=== PATIENT | female | born 1955 | race Two or more races ===

== ENCOUNTER → 2017-01-31 | Day surgery (SDC) | payer OTHER ==
[~2017-01-31] MED LIST: ALLO100T PO; AMLO5TAB4 PO; ASPI-630 PO; IV RINGERS,LACTATED 1000ML 1,000 ML IV SCH; LIDOCAINE 1% PF 2 ML VIAL. ID PRN; LISI1TAB5 PO; MIDAZOLAM HCL/PF 2 MG/2 ML VIAL. IV PRN; PROPOFOL 20 ML IV ONE; fentaNYL PF VIAL 100 MCG/2 ML VIAL IV PRN
--- NOTE | 2017-01-31 08:35 | PDOC1 ---
HISTORY & PHYSICAL H&P Rose Pro [id number] 1955 01/03/2017 02:00 PM 03/06 [employer] [facility], [facility] OUR PATIENTS COME FIRST [address] [place] [address] Ph. [phone] Patient: Rose Pro Date of : 1955 Date: 01/03/2017 2:00 PM Visit Type: Consult This 61 year old female presents for Hemorrhoids and Screening colonoscopy. History of Present Illness: 1. Hemorrhoids Additional information: Has some issue with feeling some fullness in the rectum during cleaning after bowel movement.. 2. Screening colonoscopy No prior screening. Denies risk factors. Pertinent negatives include abdominal pain, change in bowel habits, change in stool caliber, constipation, decreased appetite, diarrhea, melena, nausea, rectal bleeding, vomiting, weight gain and weight loss. Additional information: No family history of colon cancer , No family history of Crohn's/colitis, No NSAID/ASA use and Patent has no prior colonoscopy. INTAKE COMMENTS: Intake Comments: Nurse Note: the pt is here today to schedule a screening colonoscopy, the pt states that she has never had one completed. The pt does have hemorrhoids but no complaint related. PROBLEM LIST: Problem Description Onset Date Benign essential hypertension 04/13/2009 Low compliance bladder 04/13/2009 Primary cardiomyopathy 04/13/2009 Obesity 04/13/2009 Kidney stone 04/13/2009 Diabetes mellitus without complication 04/13/2009 Acute idiopathic gout of left ankle 01/02/2015 Physical exam 08/18/2015 Morbid obesity with BMI of 45.0-49.9, adult 11/20/2015 PAST MEDICAL/SURGICAL HISTORY (Detailed) Disease/disorder Onset Date Management Date Comments Cholecystectomy Cardiomyopathy Diabetes Hypertension Kidney Stones Obesity Overactive Bladder GYNECOLOGIC HISTORY: Patient is postmenopausal. Menopause occurred in 2009. OBSTETRIC HISTORY: Not currently . Medications (Active): Started Medication Directions Instruction Stopped 10/28/2016 ALLOPURINOL 100 MG TABLET TAKE ONE TABLET BY MOUTH ONCE DAILY AT BEDTIME 12/30/2013 Aspir-81 81 mg tablet,delayed release take 1 tablet by oral route every day Fish Oil take 1 tablet by mouth daily 04/04/2016 LISINOPRIL-HCTZ 20-12.5 MG TAB TAKE ONE TABLET BY MOUTH ONE TIME DAILY 11/04/2014 multivitamin tablet take 1 tablet by oral route every day with food 12/07/2016 NORVASC 5 MG TABLET TAKE ONE TABLET BY MOUTH ONE TIME DAILY Allergies: Ingredient Reaction Medication Name Comment AMOXICILLIN AMPICILLIN REVIEW OF SYSTEMS System Neg/Pos Details Constitutional Negative Chills, fever, malaise, weight gain and weight loss. ENMT Negative Sore throat. Eyes Negative Double vision. Respiratory Negative Dyspnea and wheezing. Cardio Negative Chest pain and irregular heartbeat/palpitations. GI Positive See HPI. GI Negative Abdominal pain, change in bowel habits, change in stool caliber, constipation, decreased appetite, diarrhea, melena, nausea, see HPI, rectal bleeding and vomiting. Negative Dysuria and hematuria. Endocrine Negative Cold intolerance and heat intolerance. Psych Negative Anxiety. Integumentary Negative Hives and rash. MS Negative Joint pain. Gareth/Lymph Negative Easy bleeding and easy bruising. Allergic/Immuno Negative Animals at home and food allergies. Reproductive Positive The patient is post-menopausal (The year was 2009). VITAL SIGNS Time BP mm/Hg Pulse /min Resp /min Temp F Ht ft Ht in Ht cm Wt lb Wt kg BMI kg/ m2 BSA m2 O2 Sat% 1:52 PM 128/80 97 97.9 4.0 9.50 146.05 219.20 99.427 46.61 99 Time Measured by 1:52 PM Sangeeta Barkley PHYSICAL EXAM: Exam Findings Details Constitutional Normal Well developed. Eyes Normal Conjunctiva - Right: Normal, Left: Normal. Sclera - Right: Normal, Left: Normal. Nasopharynx Normal Lips/teeth/gums - Normal. Neck Exam Normal Inspection - Normal. Thyroid gland - Normal. Respiratory Normal Inspection - Normal. Auscultation - Normal. Cardiovascular Normal Regular rate and rhythm. No murmurs, gallops, or rubs. Vascular Normal Pulses - Carotids: Normal, Femoral: Normal, Dorsalis pedis: Normal. Abdomen Normal Inspection - Normal. Anterior palpation - No guarding. No abdominal tenderness. No hepatic enlargement. No splenic enlargement. No hernia. No Ascites. Skin Normal Inspection - Normal. Extremity Normal No edema. Psychiatric Normal Oriented to time, place, person, and situation. Appropriate mood and effect. Assessment/Plan # Detail Type Description 1. Assessment Hemorrhoids, unspecified hemorrhoid type (K64.9). Patient Plan Await colonoscopy 2. Assessment Encounter for screening colonoscopy (Z12.11). [place] [facility] [place] Further diagnostic evaluations ordered today include(s) Colonoscopy to be performed today. She is to schedule a follow-up visit with Nava Brown MD upon completion of work-up Electronically signed by: Nava Brown MD 01/03/2017 02:17 PM Document generated by: Nava Brown 01/03/2017 02:17 PM Jessica Jang MD, Family Practice; Caio Chou MD Internal Medicine; John Henderson MD, Internal Medicine; Chong Brown MD Internal Medicine; Nava Brown MD, Gastroenterology; Albino Franco MD, Rheumatology, S. Parrish Davila, Physical Medicine/Rehab J. Duyen TIJERINAN ------ 01/31/17 Patient seen and examined. No change in H&P. NAVA BROWN MD Jan 31, 2017 08:35
[2017-01-31 09:26] VITALS: BP 109/66
== END | disposition home or self-care (01) ==
LOC: SURG 07:13
PROVIDERS: ATTEND Internal Medicine Gastroenterology
DX: Z12.11 Encounter for screening for malignant neoplasm of colon (principal); K64.9 Unspecified hemorrhoids; I10 Essential (primary) hypertension; I42.9 Cardiomyopathy, unspecified; E66.9 Obesity, unspecified; Z68.42 Body mass index [BMI] 45.0-49.9, adult; E11.9 Type 2 diabetes mellitus without complications; K64.8 Other hemorrhoids; Z90.49 Acquired absence of other specified parts of digestive tract; Z87.442 Personal history of urinary calculi
CPT/HCPCS: 45378; J2704

== ENCOUNTER 2019-10-26 18:44 | Emergency (ER) | payer OTHER ==
[~2019-10-26] VITALS: Ht 149.9 cm; Wt 98.0 kg
[~2019-10-26 18:44] MED LIST changes: -IV RINGERS,LACTATED 1000ML 1,000 ML IV SCH; -LIDOCAINE 1% PF 2 ML VIAL. ID PRN; +LISI1TAB37 PO; -LISI1TAB5 PO; -MIDAZOLAM HCL/PF 2 MG/2 ML VIAL. IV PRN; -PROPOFOL 20 ML IV ONE; -fentaNYL PF VIAL 100 MCG/2 ML VIAL IV PRN
[2019-10-26 19:08] VITALS: BP 160/74
[2019-10-26] MEDS ORDERED: HYDROcodone/APAP 5/325MG 1 TAB TABLET PO ONE (19:15)
--- NOTE | 2019-10-26 19:25 | PHYS DOC ---
General Adult EDM: Chief Complaint: ANKLE PROBLEM HPI: HPI: Patient is a 63 year old female who presents with was at the pool and was up on the concrete street when she slid and rolled her right ankle outward. This happened approximately 2 hours before arrival. Patient has lateral ankle pain. She states there is some tingling. She states there is 0 out of 10 pain but when something touches it or she tries to put pressure on it it is a 10 out of 10. States that she cannot put pressure on the extremity. There is 1+ swelling. There is tenderness to the lateral ankle. No deformity and no laxity in the joint. Patient had limited range of motion of the ankle due to pain. Patient can wiggle her toes. There is no tenderness to her toes or the foot. Pedal pulses strong and present. Skin pink warm dry. Cap refill less than 2 seconds. Review of Systems: Review of Systems: Constitutional: Denies fever or chills. [] Eyes: Denies change in visual acuity. [] HENT: Denies nasal congestion or sore throat. [] Respiratory: Denies cough or shortness of breath. [] Cardiovascular: Denies chest pain. Right lateral 1+ edema. [] GI: Denies abdominal pain, nausea, vomiting, bloody stools or diarrhea. [] : Denies dysuria. [] Musculoskeletal: Denies back pain. Right ankle joint pain. [] Integument: Denies rash. [] Neurologic: Denies headache, focal weakness. Right ankle tingling sensory changes. [] Endocrine: Denies polyuria or polydipsia. [] Lymphatic: Denies swollen glands. [] Psychiatric: Denies depression or anxiety. [] Heart Score: Risk Factors: Risk Factors: DM, Current or recent (<one month) smoker, HTN, HLP, family history of CAD, obesity. Risk Scores: Score 0 - 3: 2.5% MACE over next 6 weeks - Discharge Home Score 4 - 6: 20.3% MACE over next 6 weeks - Admit for Clinical Observation Score 7 - 10: 72.7% MACE over next 6 weeks - Early Invasive Strategies Current Medications: Current Medications Medications (Trade) Dose Ordered Sig/Chin Start Time Stop Time Status Last Admin Dose Admin Acetaminophen/ Hydrocodone Bitart (Lortab 5/325) 1 tab 1X ONCE 10/26/19 19:15 10/26/19 19:19 DC Allergies: Allergies: Allergies Coded Allergies Type Severity Reaction Last Updated Verified Penicillins Allergy Intermediate 01/31/17 Yes Physical Exam: PE: Constitutional: Well developed, well nourished, no acute distress, non-toxic appearance. [] HENT: Normocephalic, atraumatic, bilateral external ears normal, oropharynx moist, no oral exudates, nose normal. [] Eyes: PERRLA, EOMI, conjunctiva normal, no discharge. [] Neck: Normal range of motion, no tenderness, supple, no stridor. [] Cardiovascular:Heart rate regular rhythm, no murmur [] Lungs & Thorax: Bilateral breath sounds clear to auscultation [] Abdomen: Bowel sounds normal, soft, no tenderness, no masses, no pulsatile masses. [] Skin: Warm, dry, no erythema, no rash. [] Back: No tenderness, no CVA tenderness. [] Extremities: Lateral right ankle tenderness, no cyanosis, no clubbing, right ankle ROM limited due to pain, 1+ edema. [] Neurologic: Alert and oriented X 3, normal motor function, normal sensory f unction, no focal deficits noted. [] Psychologic: Affect normal, judgement normal, mood normal. [] EKG: EKG: [] Radiology/Procedures: Radiology/Procedures: [] Impression: [facility] [address] [place] [address] IMAGING REPORT Signed PATIENT: CHRISTIANO RUIZ ACCOUNT: [id number] : 1955 LOCATION: ER AGE: 63 SEX: F EXAM STATUS: REG ER ORD. PHYSICIAN: CHAU WEAVER APRN REASON: PAIN PROCEDURE: ANKLE RIGHT 3V Examination: 3 views of the right ankle, right foot HISTORY: History of pain COMPARISON: None available FINDINGS: The alignment of the ankle mortise grossly appears unremarkable. Moderate joint space loss identified in the tarsal joints likely degenerative disease. Small superior osteophyte formation identified in the navicular bone, first tarsometatarsal joints. Moderate degenerative changes first metatarsophalangeal joint. IMPRESSION: 1. Moderate degenerative changes tarsal joints. Electronically signed by: Irving Brooks MD (10/26/2019 8:09 PM) [id number] DICTATED and SIGNED BY: IRVING BROOKS MD DATE: 10/26/192008 Course & Med Decision Making: Course & Med Decision Making Pertinent Labs and Imaging studies reviewed. (See chart for details) See HPI. Patient placed in a walking boot. Patient follow-up with orthopedics. No bruising or redness. [] Dragon Disclaimer: Dragon Disclaimer: This electronic medical record was generated, in whole or in part, using a voice recognition dictation system. Departure Departure Impression: Primary Impression: Ankle pain, right Qualified Codes: M25.571 - Pain in right ankle and joints of right foot Disposition: HOME, SELF-CARE Condition: STABLE Referrals: UNKNOWN PCP NAME (PCP) TIFFANY CHOPRA MD Patient Instructions: Ankle Sprain Additional Instructions: Follow-up with orthopedic doctor as I have referred you to as soon as possible. Take medication as prescribed and with food. Do not drive or drink any alcohol with this medication as it will make you sleepy. Wear the walking boot while you are awake. Use elevation and ice to also help with pain. Scripts Hydrocodone/Apap 5-325 (NORCO 5-325 TABLET) 1 Each Tablet 1 TAB PO PRN Q6HRS PRN for PAIN, #10 TAB 0 Refills Prov: CHAU WEAVER APRN 10/26/19 Justicifation of Admission Dx: Justifications for Admission: Justification of Admission Dx: N/A CHAU WEAVER APRN Oct 26, 2019 19:25
--- NOTE | 2019-10-26 20:12 | RAD ---
Examination: 3 views of the right ankle, right foot HISTORY: History of pain COMPARISON: None available FINDINGS: The alignment of the ankle mortise grossly appears unremarkable. Moderate joint space loss identified in the tarsal joints likely degenerative disease. Small superior osteophyte formation identified in the navicular bone, first tarsometatarsal joints. Moderate degenerative changes first metatarsophalangeal joint. IMPRESSION: 1. Moderate degenerative changes tarsal joints. Electronically signed by: Irving Brooks MD (10/26/2019 8:09 PM) [id number]
[2019-10-26] MEDS ORDERED: HYDR-3164 PO (20:33)
== END 2019-10-26 22:13 | disposition home or self-care (01) ==
LOC: ER 18:44
DX: M25.571 Pain in right ankle and joints of right foot (principal); M79.671 Pain in right foot; R60.0 Localized edema; Z88.0 Allergy status to penicillin
CPT/HCPCS: 73610; 73630; 99284